=== PATIENT | female | born 2005 | race Caucasian/White ===

== ENCOUNTER 2024-05-07 09:56 | Emergency (ER) | payer BC, OTHER, SELFPAY ==
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
[2024-05-07 10:04] VITALS: BP 122/74; PULSE 70; RESP 16; TEMP 36.6; O2SAT 98; BMI 21.6
[2024-05-07 11:45] VITALS: BP 122/68; PULSE 65; RESP 14; TEMP 37; O2SAT 100
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
[2024-05-07 12:54] VITALS: BP 122/68; PULSE 65; RESP 14; TEMP 37; O2SAT 100
== END 2024-05-07 12:57 | disposition home or self-care (01) ==
PROVIDERS: Emergency Provider Emergency Medicine
DX: S16.1XXA Strain of muscle, fascia and tendon at neck level, initial encounter (principal); V43.52XA Car driver injured in collision with other type car in traffic accident, initial encounter; Y93.89 Activity, other specified; Y92.410 Unspecified street and highway as the place of occurrence of the external cause; Y99.9 Unspecified external cause status; M54.2 Cervicalgia; M54.6 Pain in thoracic spine
CPT/HCPCS: 72040; 99283; 99284

== ENCOUNTER 2024-07-25 22:15 | Emergency (ER) | payer BC, SELFPAY ==
[2024-07-25 22:17] VITALS: BP 134/84; PULSE 108; RESP 16; TEMP 37.4; O2SAT 99; BMI 21.4
--- NOTE | 2024-07-25 22:38 | ED.GENADULT ---
HPI - General Adult General Chief complaint: General Medical Stated complaint: ? strep throat Time Seen by Provider: 07/25/24 22:34 Source: patient Mode of arrival: ambulatory Limitations: no limitations History of Present Illness ED Provider: corazon GARCIA narrative: Patient has been having sore throat for last 4 days along with blister lesions in the lives which she had off and on in the past no fever no chills Related Data Previous Rx's ?Medication ?Instructions ?Recorded cyclobenzaprine 5 mg tablet 5 mg PO TID PRN muscle spasm #10 05/07/24 tabs lidocaine 5 % topical patch 1 patch topical DAILY #15 ea 05/07/24 cefuroxime axetil 500 mg tablet 500 mg PO BID 7 days #14 tabs 07/25/24 valacyclovir 1 gram tablet 1,000 mg PO BID #14 tabs 07/25/24 (Valtrex) Allergies Allergy/AdvReac Type Severity Reaction Status Date / Time No Known Allergies Allergy Verified 07/25/24 22:19 Review of Systems Review of Systems: Yes all other systems are reviewed and are negative [facility] Social History Social History Advance Directives: No Advance Directives Information Provided: No Physical Exam ED Vital Signs: Vital Signs - 24 hr 07/25/24 22:17 Temperature 99.3 F Pulse Rate 108 H Respiratory Rate 16 Blood Pressure 134/84 Pulse Oximetry 99 Oxygen Delivery Method Room Air BMI result Body Mass Index 21.4 Appearance: Alert. Oriented X3. No acute distress. Eyes: No pallor or icterus ENT: Pharynx erythematous. Oral Mucosa moist blister like lesions in the lips Neck: Normal inspection. Neck supple. Upper cervical lymph node present CVS: Normal heart rate and rhythm. Pulses normal. Respiratory: No respiratory distress. Equal air entry bilateral, no wheezing/rales/rhonchi Abdomen: Soft and nontender. Bowel sounds are present, no mass palpable, no CVA tenderness Skin: Skin warm and dry. Normal skin color. Normal skin turgor. Medical Decision Making Lab Data MDM Lab Attestation statement: I reviewed the patient's lab results. Labs: Lab Results 07/25/24 Range/Units 22:26 Influenza Type A (PCR) NEGATIVE (Negative) Influenza Type B (PCR) NEGATIVE (Negative) RSV RNA Qual (PCR) NEGATIVE (Negative) SARS-CoV-2 RNA (RT-PCR) NEGATIVE (Negative) S. pyogenes GrpA DEL Negative (Negative) Discharge Plan Discharge Clinical Impression: Herpes labialis, Pharyngitis Patient Disposition: Home, Self-Care Instructions: Pharyngitis (ED), Oral Herpes Simplex Virus Infections (ED) Additional Instructions: Start taking Valtrex and antibiotic as prescribed and follow up with your PCP if not better Your COVID flu strep tests are negative Prescriptions: New valacyclovir [Valtrex] 1 gram tablet 1,000 mg PO BID Qty: 14 0RF cefuroxime axetil 500 mg tablet 500 mg PO BID 7 Days Qty: 14 0RF No Action cyclobenzaprine 5 mg tablet 5 mg PO TID PRN (Reason: muscle spasm) Qty: 10 0RF lidocaine 5 % adhesive patch,medicated 1 patch topical DAILY Qty: 15 0RF Rx Instructions: leave on most painful area for up to 12 hrs Print Language: Polish
[2024-07-25 22:43] LABS: IDNOW Serial# 6674DD1D; Strep A Nucleic Acid Negative (Negative)
[2024-07-25 23:09] LABS: Influenza A PCR NEGATIVE (Negative); Influenza B PCR NEGATIVE (Negative); Resp Syncy Virus RNA Qual PCR NEGATIVE (Negative); SARS COV2 PCR INHOUSE NEGATIVE (Negative)
[2024-07-25] MEDS: valACYclovir HCL 1,000 MG TABLET 1000 MG PO (23:30)
[2024-07-25] MEDS: cefuroxime axetiL 500 MG TABLET PO (23:30)
[2024-07-25 23:33] VITALS: BP 134/84; PULSE 108; RESP 16; TEMP 37.4; O2SAT 99
== END 2024-07-25 23:33 | disposition home or self-care (01) ==
PROVIDERS: Emergency Provider Internal Medicine
DX: B00.1 Herpesviral vesicular dermatitis (principal); J02.9 Acute pharyngitis, unspecified; Z03.818 Encounter for observation for suspected exposure to other biological agents ruled out
CPT/HCPCS: 0241U; 87651; 99283

== ENCOUNTER 2025-02-26 17:32 | Inpatient (IN) | payer BC, SELFPAY ==
--- NOTE | ~2025-02-26 | CT_ITS ---
CLINICAL HISTORY: LUQ pain radiating to back CT abdomen and pelvis with contrast Comparison: None provided Findings: The lung bases are clear. Hepatomegaly with steatosis Possible tiny gallstones without CT evidence for cholecystitis. Small right-sided hypodense renal cysts. Asymmetric patchy hypoenhancement/nephrograms noted in the left upper pole and right lower pole kidneys concerning for pyelonephritis. 2 mm calculus right upper pole kidney. No significant hydronephrosis. Large colonic stool burden. Anteverted uterus with prominent fluid-filled uterine cavity, may be physiologic. Left ovarian cyst measuring 2.4 cm. This may be further evaluated with ultrasound. Normal appendix. Circumferential bladder wall thickening greater than expected distention. The bones are intact. IMPRESSION: 1. Features concerning for multifocal bilateral pyelonephritis, should be correlated clinically. 2. Nonobstructive 2 mm right upper pole renal calculus. 3. Suspect cystitis. This document has been electronically signed by: Luis Fernando Land MD on 02/26/2025 21:11:10
--- NOTE | ~2025-02-26 | US_ITS ---
CLINICAL HISTORY: abdominal pain, pyelonephritis US abdomen limited Comparison: 02/26/2025 CT Findings: The visualized pancreas is normal. Liver measures 16.6 cm in length and demonstrates normal echotexture. Myelo myelo late 30s 40s medial old the consequence There is no intrahepatic bile duct dilatation. The common duct is 3 mm in diameter. The gallbladder is normal. There is no sonographic Pacheco sign. The main portal vein is antegrade. The right kidney is 11.3 cm in length. Left kidney measures 11.8 cm in length. Unremarkable kidneys without hydronephrosis. No ascites. IMPRESSION: Mild hepatomegaly. Otherwise unremarkable exam. This document has been electronically signed by: Maranda Lara MD on 03/01/2025 11:38:01
--- NOTE | ~2025-02-26 | US_ITS ---
CLINICAL HISTORY: abdominal pain, ovarian cyst US pelvis transabdominal and transvaginal Comparison: 02/26/2026 Findings: Uterus measures mode 8 x 3.1 x 5.1 cm Normal myometrium. Endometrium 7 mm thickness. Right ovary 3.9 x 2 x 2.6 cm. Left ovary 3.7 x 2.2 x 3 cm. Thick wall mostly collapsed slit-like 2 cm left ovarian cyst/likely corpus luteum cyst. Small free fluid likely physiological. IMPRESSION: Thick wall mostly collapsed slit-like 2 cm left ovarian cyst/likely corpus luteum cyst. Small free fluid likely physiological. Of note, spectral Doppler evaluation of the ovaries was not performed. This document has been electronically signed by: Maranda Lara MD on 03/01/2025 11:42:02
[2025-02-26 18:05] VITALS: BP 127/75; PULSE 137; RESP 18; TEMP 39.2; O2SAT 97; BMI 21.9
--- NOTE | 2025-02-26 18:07 | ED.ABDPAIN ---
HPI - Abdominal Pain General Chief Complaint: Abdominal Pain Stated Complaint: rib/abd pain Time Seen by Provider: 02/26/25 18:16 Source: patient Mode of arrival: ambulatory Limitations: no limitations History of Present Illness ED Provider: Charlie Ball PA-C HPI narrative: 19-year-old female with medical history of asthma, presents to the ED due to 4 days of abdominal pain. Patient says she woke up with right-sided rib pain which migrated to the left side 2 days ago, radiates to center of bilateral back. Patient states that these symptoms are associated with vomiting and reports 2 episodes of vomiting this morning, currently not nauseous. Patient states 1 week ago she had urinary symptoms including burning with urination, and increased urinary frequency. She states she took [id number] azo and symptoms resolved. She denies sick contacts, recent travel, chest pain, shortness of breath, hematemesis, black/tarry stool, diarrhea. MD elicited complaint: abdominal pain Onset (ago): day(s) (4) Pain Consistency: constant Location: LUQ Severity: moderate Quality: stabbing Radiation: other (B/L lumbar back) Migration to: LUQ Exacerbating factors: nothing Relieving factors: nothing Associated symptoms: denies other symptoms Related Data Home Medications ?Medication ?Instructions ?Recorded ?Confirmed ibuprofen 200 mg tablet (Advil) 600 mg PO Q6H PRN Pain 02/26/25 02/26/25 Allergies Allergy/AdvReac Type Severity Reaction Status Date / Time No Known Allergies Allergy Verified 02/26/25 18:07 Review of Systems Review of Systems CONST: Negative for fever, body aches and chills. HENT: Negative for neck pain/stiffness, headache, congestion, sore throat, swelling. EYES: Negative for discharge/pain or vision changes. RESP: Negative for cough/hemoptysis and shortness of breath. CV: Negative chest pain, difficulty breathing, palpitations. ABD: POS pain, nausea, vomiting. : Negative increase frequency, dysuria, blood in urine or stool. MUSC: Negative for muscle aches, edema. SKIN: Negative rash, lesions/sores. NEURO: Negative headache, dizziness, weakness. [facility] Past Medical History Attestation statement: The following information was validated with the patient. Source: old records reviewed and nursing notes reviewed Social History Social History Household Members: Family Housing: House Patient Tobacco Use Status: Former Tobacco user service: No Physical Exam ED Vital Signs: Vital Signs - 24 hr 02/26/25 18:05 02/26/25 18:10 02/26/25 20:29 Temperature 102.5 F H 101 F H 98.8 F Pulse Rate 137 H 82 82 Respiratory Rate 18 20 20 Blood Pressure 127/75 99/53 L 99/53 L Pulse Oximetry 97 98 98 Oxygen Delivery Method Room Air Room Air Room Air 02/26/25 20:46 Temperature 98.8 F Pulse Rate Respiratory Rate Blood Pressure Pulse Oximetry Oxygen Delivery Method BMI result Body Mass Index 21.9 GENERAL APPEARANCE: ?AxOx4, generally well-appearing, no acute distress. HEENT: ?NC, AT. MMM. EOMI, clear conjunctiva, oropharynx clear. NECK: ?Supple without lymphadenopathy.? No stiffness or restricted ROM. HEART:? tachycardic rate and regular rhythm, normal S1/S1, no m/r/g LUNGS:? CTAB, moving air well. No crackles or wheezes are heard. ABDOMEN: ?Soft, nondistended with good bowel sounds heard. TTP of LUQ, no rigidity, no distention, no guarding, no rebound tenderness, no overlying skin changes, negative Pacheco's sign. BACK: mild TTP of B/L flanks EXTREMITIES: ?Without cyanosis, clubbing or edema. NEUROLOGICAL: ?Grossly nonfocal. Alert and oriented, moving all 4 extremities. Observed to ambulate with normal gait. Skin: ?Warm and dry without any rash. Course Course Course Narrative: This is an RME: Additional HPI, ROS, PE not included below will be deferred to primary provider. RME assessment and note performed by: Tatiana Allred PA-C This is a 17-layz-agk-female, with no known medical problems, who presents to the ER with complaints of left-sided flank pain which started 4 days ago. She also reports right upper and left upper quadrant pain. Constant, with nausea and vomiting, no diarrhea. Patient with left-sided CVA tenderness. Abdomen is otherwise soft, nontender patient tachycardic at 137bpm temp of 102.5?. Plan: Labs, UA Medical Decision Making Medical Decision Making MDM Narrative: 19-year-old female with medical history of asthma, presents to the ED due to 4 days of abdominal pain. Patient says she woke up with right-sided rib pain which migrated to the left side 2 days ago, radiates to center of bilateral back. Patient states that these symptoms are associated with vomiting and reports 2 episodes of vomiting this morning, currently not nauseous. Patient states 1 week ago she had urinary symptoms including burning with urination, and increased urinary frequency. She states she took [id number]-[id number] azo and symptoms resolved. Vital signs reveal a tachycardia 137 beats per minute, with temperature of 102.5?. Sepsis alert called at 18:42. Physical exam reveals TTP over the LUQ, abdomen soft, no distention, no rigidity, no guarding, no rebound tenderness, negative Pacheco's sign, no overlying skin changes. I did not appreciate CVA tenderness on exam, patient more tender over bilateral lumbar paraspinal muscles to palpation. Course 18:52- IV fluids LR 30mg/kg bolus started, IV tylenol for fever, 4mg zofran for nausea. Ordered CT abdomen and pelvis with IV contrast for evaluation of possible pyelonephritis, acute abdominal pathology. EKG without ST elevation/depression/T-wave abnormality, arrhythmia. 19:01- IV ceftriaxone for prophylactic coverage. Labs reveal hypomagnesemia at 1.4. Ordered 2 g of IV magnesium for repletion. Labs revealed leukocytosis at 25.2, lactic acid WNL. Awaiting UA results. 20:29- BP 99/53, Temp- 98.8. Patient states she feels better after receiving fluids. Viral serology negative. Awaiting CT abdomen and pelvis results. 21:16- CT abdomen and pelvis reveals bilateral pyelonephritis, with a nonobstructive 2 mm right upper pole renal calculi. Due to bilateral pyelonephritis, and white count of 25.2. Hospitalist Dr. Sánchez consulted and agreed for admission. Patient aware and compliant with plan. Differential Diagnosis Differential Diagnoses: The differential diagnosis associated with the presentation includes Pyelonephritis Obstructing renal calculi UTI Admission/Observation Consideration of admission/observation: Escalation of care including admission/observation considered Consult Healthcare Provider Management of the patient was discussed with: Hospitalist (Dr. Sánchez consulted for admission) Lab Data MDM Lab Attestation statement: I reviewed the patient's lab results. 02/27/25 04:01 02/27/25 04:01 Labs: Lab Results 02/26/25 Range/Units 18:45 WBC 25.2 H (4.8-10.8) X10*3/uL RBC 4.05 L (4.20-5.50) X10*6/uL Hgb 12.1 (12.0-16.0) g/dl Hct 35.1 L (37.0-47.0) % MCV 86.7 (80.0-98.0) fL MCH 29.9 (27.0-33.0) pg MCHC 34.5 (31.0-35.0) g/dl RDW 12.1 (11.0-16.0) % Plt Count 361 (160-400) X10*3/uL MPV 8.8 L (9.4-12.3) fL Immature Gran % (Auto) 1.3 H (0.0-0.4) % Neut % (Auto) 84.5 H (45-73) % Lymph % (Auto) 6.6 L (20-40) % [place] % (Auto) 7.4 (2-11) % Eos % (Auto) 0.0 (0-4) % Baso % (Auto) 0.2 (0-2) % Lymph # (Auto) 1.7 (1.2-4.9) X10*3/uL [place] # (Auto) 1.9 H (0.1-1.2) X10*3/uL Eos # (Auto) 0.0 (0.0-0.4) X10*3/uL Baso # (Auto) 0.1 (0.0-0.2) X10*3/uL Abs Immat Gran (auto) 0.33 H (0.00-0.03) X10*3/uL Absolute Neuts (auto) 21.3 H (2.0-8.3) x10*3/uL Absolute Nucleated RBC 0.000 (0.0-0.012) X10*3/uL Nucleated RBC % (auto) 0.0 (0.0-0.2) /100WBC Smear Tech's Comments VERIFIED Sodium 134 L (135-145) mmol/L Potassium 3.4 (3.3-5.1) mmol/L Chloride 103 (96-108) mmol/L Carbon Dioxide 22 (22-29) mmol/L Anion Gap 12 (12-20) BUN 9 (9-16) mg/dL Creatinine 0.90 (0.5-1.4) mg/dL Estim Creat Clear Calc 78.8 Estimated GFR > 60 Random Glucose 98 (60-115) mg/dL Lactic Acid 0.8 (0.5-2.0) mmol/L Calcium 9.4 (8.4-10.2) mg/dL Magnesium 1.4 L* (1.6-2.6) mg/dL Total Bilirubin 0.7 (0.0-1.0) mg/dL Direct Bilirubin 0.4 (0.0-0.5) mg/dL AST 26 (5-31) U/L ALT 9 (0-31) U/L Alkaline Phosphatase 77 (39-117) U/L Total Protein 7.7 (6.5-8.0) g/dL Albumin 4.5 (3.5-5.0) g/dL Lipase 17 (8-78) U/L Beta HCG, Quant < 2 mIU/mL Influenza Type A (PCR) NEGATIVE (Negative) Influenza Type B (PCR) NEGATIVE (Negative) RSV RNA Qual (PCR) NEGATIVE (Negative) SARS-CoV-2 RNA (RT-PCR) NEGATIVE (Negative) Independent Interpretation I performed an independent interpretation of an: EKG Interpretation: I independently interpreted the EKG Vent. Rate : 107 BPM Atrial Rate : 107 BPM P-R Int : 146 ms QRS Dur : 66 ms QT Int : 290 ms P-R-T Axes : 61 37 6 degrees QTcB Int : 387 ms Sinus tachycardia Left atrial enlargement Nonspecific ST and T wave abnormality Abnormal ECG Radiology Impression Radiologist Impression: Findings: The lung bases are clear. Hepatomegaly with steatosis Possible tiny gallstones without CT evidence for cholecystitis. Small right-sided hypodense renal cysts. Asymmetric patchy hypoenhancement/nephrograms noted in the left upper pole and right lower pole kidneys concerning for pyelonephritis. 2 mm calculus right upper pole kidney. No significant hydronephrosis. Large colonic stool burden. Anteverted uterus with prominent fluid-filled uterine cavity, may be physiologic. Left ovarian cyst measuring 2.4 cm. This may be further evaluated with ultrasound. Normal appendix. Circumferential bladder wall thickening greater than expected distention. The bones are intact. IMPRESSION: 1. Features concerning for multifocal bilateral pyelonephritis, should be correlated clinically. 2. Nonobstructive 2 mm right upper pole renal calculus. 3. Suspect cystitis. This document has been electronically signed by: Luis Fernando Land MD on 02/26/2025 21:11:10 Dictated By: Luis Fernando Land MD Signed By: <Electronically signed by Luis Fernando Land MD in OV> 02/26/252111 External Record Review External record reviewed: Inpatient record, Office record and Outpatient record Medications Administered Generic Name Dose Route Start Last Admin Trade Name Freq PRN Reason Stop Dose Admin Acetaminophen 650 mg 02/26/25 22:06 02/27/25 08:05 Acetaminophen 325 Mg Tablet PO 650 mg Q6H PRN Administration Pain, Mild 1-3,fever,headache Ceftriaxone Sodium 2 gm 02/27/25 21:00 02/27/25 20:50 Ceftriaxone Sodium 2 Gm Vial IVPUSH 2 gm Q24H MONA Administration Docusate Sodium 100 mg 02/27/25 21:00 02/27/25 20:49 Docusate Sodium 100 Mg Capsule PO 100 mg BEDTIME MONA Administration Magnesium Hydroxide 30 ml 02/26/25 22:06 02/27/25 14:40 Milk Of Magnesia 30 Ml Oral.Susp PO 30 ml DAILY PRN Administration Constipation Oxycodone HCl 5 mg 02/27/25 12:15 02/27/25 12:30 Oxycodone Hcl Immed Release 5 Mg Tablet PO 5 mg Q6H PRN Administration Pain, Moderate(Pain Scale 4-6) Sodium Chloride 3 ml 02/27/25 00:00 02/27/25 20:53 0.9 % Sodium Chloride Flush 3 Ml Syringe IVFLUSH 3 ml QSHIFT MONA Administration Discontinued Medications Generic Name Dose Route Start Last Admin Trade Name Freq PRN Reason Stop Dose Admin Ceftriaxone Sodium 2 gm 02/26/25 18:52 02/26/25 19:01 Ceftriaxone Sodium 2 Gm Vial IVPUSH 02/26/25 18:53 2 gm ONCE ONE Administration Acetaminophen 1,000 mg in 100 mls @ 400 mls/hr 02/26/25 18:19 02/26/25 22:35 Ofirmev IV 02/26/25 18:33 Infused ONCE ONE Infusion Lactated Ringer's 1,632.93 mls @ 1,632.93 mls/hr 02/26/25 18:21 02/27/25 00:04 Lr 30 ml/kg infuse over 1 hr (1632.93 ml) 02/26/25 19:20 Infused IV Infusion .Q1H ONE Magnesium Sulfate 2 gm in 50 mls @ 150 mls/hr 02/26/25 19:49 02/27/25 00:04 Magnesium Sulfate/H2o IV 02/26/25 20:08 Infused ONCE ONE Infusion Iohexol 100 ml 02/26/25 20:12 02/26/25 20:12 Iohexol 350 Mg/Ml 100 Ml Infus..Btl IV 02/26/25 20:13 85 ml ONCE ONE Administration Ketorolac Tromethamine 30 mg 02/27/25 05:48 02/27/25 06:11 Ketorolac Tromethamine 30 Mg/Ml Vial IVPUSH 02/27/25 05:49 30 mg ONCE ONE Administration Ketorolac Tromethamine 15 mg 02/27/25 16:44 02/27/25 16:52 Ketorolac Tromethamine 15 Mg/Ml Vial IVPUSH 02/27/25 16:45 15 mg ONCE ONE Administration Ondansetron HCl 4 mg 02/26/25 19:11 02/26/25 19:15 Ondansetron Hcl 4 Mg/2 Ml Vial IVPUSH 02/26/25 19:12 4 mg ONCE ONE Administration Critical Care Time Critical Care Time Critical Care Time: Yes Total Critical Care Time: 63 Attestation: I have personally provided 63minutes of critical care time exclusive of time spent on separately billable procedures. Time includes review of lab data, radiology results, discussion with consultants, and monitoring for potential decompensation. Intervention performed as documented. Discharge Plan Discharge Clinical Impression: Pyelonephritis Patient Disposition: Admitted As Inpatient Interventions: Admission Worksheet (ED) Last Done: 02/27/25 04:54 Discharge Date/Time: 02/27/25 10:16
[2025-02-26 18:10] VITALS: BP 99/53; PULSE 82; RESP 20; TEMP 38.3; O2SAT 98
--- NOTE | 2025-02-26 18:10 | ECG_ITS ---
Test Reason : SEPSIS ALERT Blood Pressure : */* mmHG Vent. Rate : 107 BPM Atrial Rate : 107 BPM P-R Int : 146 ms QRS Dur : 66 ms QT Int : 290 ms P-R-T Axes : 61 37 6 degrees QTcB Int : 387 ms Sinus tachycardia Left atrial enlargement Nonspecific ST and T wave abnormality Abnormal ECG No previous ECGs available Referred By: Tatiana Allred Electronically Signed By: MELANIE MILLER
[2025-02-26] MEDS: cefTRIAXone sodium 2 GM VIAL IVPUSH (19:01)
[2025-02-26 19:12] LABS: Lactic Acid 0.8 mmol/L (0.5-2.0)
[2025-02-26] MEDS: ondansetron HCL 4 MG/2 ML VIAL IVPUSH (19:15)
[2025-02-26 19:16] LABS: Alanine Aminotransferase 9 U/L (0-31); Albumin Level 4.5 g/dL (3.5-5.0); Alkaline Phosphatase 77 U/L (39-117); Anion Gap 12 (12-20); Aspartate Amino Transferase 26 U/L (5-31); Bilirubin Direct 0.4 mg/dL (0.0-0.5); Bilirubin Total 0.7 mg/dL (0.0-1.0); Blood Urea Nitrogen 9 mg/dL (9-16); Calcium 9.4 mg/dL (8.4-10.2); Carbon Dioxide 22 mmol/L (22-29); Chloride 103 mmol/L (96-108); Creatinine Clr Calc Pharmacy 78.8; Estimated Glomerular Filt Rate > 60; Glucose Random 98 mg/dL (60-115); Lipase 17 U/L (8-78); Magnesium 1.4 mg/dL (1.6-2.6); Potassium 3.4 mmol/L (3.3-5.1); Sodium 134 mmol/L (135-145); Total Protein 7.7 g/dL (6.5-8.0)
[2025-02-26] MEDS: Acetaminophen 1,000 MG/100 ML PIGGYBACK 400 MG IV (19:17)
[2025-02-26 19:21] LABS: Basophils Absolute Auto 0.1 X10*3/uL (0.0-0.2); Basophils Percent Auto 0.2 % (0-2); HCG Quantitative < 2 mIU/mL; Hematocrit 35.1 % (37.0-47.0); Hemoglobin 12.1 g/dl (12.0-16.0); Imm Gran Abs Auto 0.33 X10*3/uL (0.00-0.03); Imm Gran Pct Auto 1.3 % (0.0-0.4); Lymphocytes Absolute Auto 1.7 X10*3/uL (1.2-4.9); Lymphocytes Percent Auto 6.6 % (20-40); Mean Corpuscular HGB Conc 34.5 g/dl (31.0-35.0); Mean Corpuscular Hemoglobin 29.9 pg (27.0-33.0); Mean Corpuscular Volume 86.7 fL (80.0-98.0); Mean Platelet Volume 8.8 fL (9.4-12.3); Monocytes Absolute Auto 1.9 X10*3/uL (0.1-1.2); Monocytes Percent Auto 7.4 % (2-11); Neutrophils Absolute Auto 21.3 x10*3/uL (2.0-8.3); Neutrophils Percent Auto 84.5 % (45-73); Platelet Count 361 X10*3/uL (160-400); Red Blood Count 4.05 X10*6/uL (4.20-5.50); Red Cell Distribution Width 12.1 % (11.0-16.0); SCAN SMEAR FLAG 1; White Blood Count 25.2 X10*3/uL (4.8-10.8)
[2025-02-26 19:33] LABS: Influenza A PCR NEGATIVE (Negative); Influenza B PCR NEGATIVE (Negative); Resp Syncy Virus RNA Qual PCR NEGATIVE (Negative); SARS COV2 PCR INHOUSE NEGATIVE (Negative)
[2025-02-26 20:01] LABS: MANUAL DIFF FLAG SCAN; SLIDE REVIEW VERIFIED
[2025-02-26] MEDS: iohexoL 350 MG/ML 100 ML INFUS..BTL IV (20:12)
[2025-02-26 20:29] VITALS: BP 99/53; PULSE 82; RESP 20; TEMP 37.1; O2SAT 98
[2025-02-26 20:46] VITALS: TEMP 37.1
[2025-02-26 21:32] VITALS: BP 107/58; PULSE 80; O2SAT 97
[2025-02-26] MEDS: Magnesium Sulfate/H2O 2 GM/50 ML PIGGYBACK IV (21:32)
[2025-02-26 21:53] VITALS: BP 105/47; PULSE 80; O2SAT 95
--- NOTE | 2025-02-26 22:06 | PM.IMHP ---
History of Present Illness Date of Service: 02/26/25 Chief Complaint: flank pain This is a 19-year-old female with pertinent history of mild intermittent asthma not on home oxygen who presents to the emergency department for evaluation of flank pain. Patient states her symptoms started 3 days prior to presentation. She started having right-sided flank pain 3 days prior to presentation and it has subsequently progressed to left-sided flank pain 2 days prior to presentation. The pain is intermittent and not relieved with Tylenol. Also has been having chills, no documented fever. Patient had nausea and 2 episodes of nonbloody emesis on the day of presentation. This has never happened before. Patient had dysuria and increased urinary frequency 1 week ago and took [id number] azo for it and her symptoms resolved. Currently denies any urinary symptoms. No chest pain, palpitations, shortness of breath, changes in bowel habits. In the emergency department, patient was found to be septic with leukocytosis 25.2. Imaging with bilateral pyelonephritis. Review of Systems Constitutional: Constitutional: Reports chills and Reports fever(s) Cardiovascular: Cardiovascular: Reports no additional cardiovascular complaints Respiratory: Respiratory: Reports no additional respiratory complaints Genitourinary: Genitourinary: Reports flank pain and Reports urinary urgency PMFSH Pertinent family history: No family history of early CAD Social History Smoked in Last 30 Days: No Advance Directives: No Advance Directives Information Provided: No Do you have a plan to hurt others: No Plan Patient : No Meds Allergies Allergy/AdvReac Type Severity Reaction Status Date / Time No Known Allergies Allergy Verified 02/26/25 18:07 Physical Exam Vital Signs and Narrative: Vital Signs: Last Vital Signs Temp 98.8 F 02/26/25 20:46 Pulse 82 02/26/25 20:29 Resp 20 02/26/25 20:29 BP 99/53 L 02/26/25 20:29 Pulse Ox 98 02/26/25 20:29 O2 Del Method Room Air 02/26/25 20:29 BMI result Body Mass Index 21.9 Young female lying in bed in no distress Neck supple, no JVD Regular rate and rhythm, S1-S2 heard Regular breath sounds bilaterally, no wheezing or crackles appreciated Abdomen with bilateral CVA tenderness, no guarding, no rigidity Patient is awake, alert and oriented to self, place, time and person ; no focal motor deficit Psych: Normal mood No pedal edema Results Labs 02/26/25 18:45 02/26/25 18:45 Labs: Laboratory Results - last 24 hr 02/26/25 18:45 MCV 86.7 MCH 29.9 MCHC 34.5 RDW 12.1 Plt Count 361 MPV 8.8 L Immature Gran % (Auto) 1.3 H Neut % (Auto) 84.5 H Lymph % (Auto) 6.6 L [place] % (Auto) 7.4 Eos % (Auto) 0.0 Baso % (Auto) 0.2 Lymph # (Auto) 1.7 [place] # (Auto) 1.9 H Eos # (Auto) 0.0 Baso # (Auto) 0.1 Abs Immat Gran (auto) 0.33 H Absolute Neuts (auto) 21.3 H Absolute Nucleated RBC 0.000 Nucleated RBC % (auto) 0.0 Smear Tech's Comments VERIFIED Anion Gap 12 Estim Creat Clear Calc 78.8 Estimated GFR > 60 Random Glucose 98 Lactic Acid 0.8 Calcium 9.4 Magnesium 1.4 L* Total Bilirubin 0.7 Direct Bilirubin 0.4 AST 26 ALT 9 Alkaline Phosphatase 77 Total Protein 7.7 Albumin 4.5 Lipase 17 Beta HCG, Quant < 2 Influenza Type A (PCR) NEGATIVE Influenza Type B (PCR) NEGATIVE RSV RNA Qual (PCR) NEGATIVE SARS-CoV-2 RNA (RT-PCR) NEGATIVE Assessment and Plan (1) Pyelonephritis: Status: Acute (2) Sepsis: Status: Acute Plan This is a 19-year-old female with pertinent history of mild intermittent asthma not on home oxygen who presents to the emergency department for evaluation of flank pain. #. Sepsis due to acute bilateral pyelonephritis: Will admit patient with IV ceftriaxone. Resuscitated with IV crystalloids. Lactic acid and blood culture obtained. UA and urine culture pending #. Hypomagnesemia: Repleted DVT prophylaxis: None. Low risk. Patient is ambulatory. Full code Admit as inpatient and will require two night minimum hospital stay for IV antibiotics (as above), which is not possible in a lesser acute setting. Quality Stroke Does the patient have a stroke diagnosis?: No VTE Prior VTE?: No VTE Risk Level:: Medical - low VTE Device Contraindication: Treatment Not Indicated VTE Drug Contraindication: Treatment Not Indicated
--- NOTE | 2025-02-26 22:48 | PHA.MEDREC ---
Pharmacy Consult ? Medication Reconciliation Pharmacy has completed the medication reconciliation.
[2025-02-27 00:22] VITALS: BP 109/56; PULSE 77; RESP 16; TEMP 36.7; O2SAT 96
[2025-02-27 00:33] LABS: Appearance Urine Clear; Color Urine Yellow; Glucose Urine UA Negative (Negative); Leukocyte Esterase Urine Moderate (2+) (Negative); Nitrite Urine Negative (Negative); PH 6.5 (5.0-9.0); Specific Gravity - Urine >= 1.030 (1.005-1.025); UMIC TRIGGER UACC YES; Urine Blood Trace (Negative); Urine Ketones Trace mg/dL (Negative); Urine Protein Negative (Neg-Trace)
[2025-02-27] MEDS: Acetaminophen 325 MG TABLET 650 MG PO ×2 (00:33→08:05)
[2025-02-27 01:04] LABS: Bacteria Urine None Seen (None Seen); RBC Urine 0-2 /HPF (0-2); Squamous Epithelial Cell Urine 0-2 /HPF (0-2); UACC Culture Trigger YES; WBC Urine >50 /HPF (0-5)
--- NOTE | 2025-02-27 01:08 | PC.NURSE ---
assumed care for this pt at 2300. pt in stretcher resting quietly in no notable distress. significant other is bedside. no IV fluids running at this time. pt not complaining of any pain. 0004 IVF ended in NOV, fluids not running at this time.
[2025-02-27 04:05] LABS: MANUAL DIFF FLAG NO
[2025-02-27 04:09] LABS: Basophils Percent Auto 0.2 % (0-2); Eosinophils Percent Auto 0.1 % (0-4); Hematocrit 32.1 % (37.0-47.0); Hemoglobin 11.3 g/dl (12.0-16.0); Imm Gran Abs Auto 0.11 X10*3/uL (0.00-0.03); Imm Gran Pct Auto 0.6 % (0.0-0.4); Lymphocytes Absolute Auto 1.9 X10*3/uL (1.2-4.9); Lymphocytes Percent Auto 9.7 % (20-40); Mean Corpuscular HGB Conc 35.2 g/dl (31.0-35.0); Mean Corpuscular Hemoglobin 30.4 pg (27.0-33.0); Mean Corpuscular Volume 86.3 fL (80.0-98.0); Mean Platelet Volume 8.6 fL (9.4-12.3); Monocytes Absolute Auto 1.9 X10*3/uL (0.1-1.2); Monocytes Percent Auto 9.9 % (2-11); Neutrophils Absolute Auto 15.2 x10*3/uL (2.0-8.3); Neutrophils Percent Auto 79.5 % (45-73); Platelet Count 325 X10*3/uL (160-400); Red Blood Count 3.72 X10*6/uL (4.20-5.50); Red Cell Distribution Width 12.2 % (11.0-16.0); SCAN SMEAR FLAG 1; White Blood Count 19.1 X10*3/uL (4.8-10.8)
[2025-02-27 04:33] LABS: Anion Gap 12 (12-20); Blood Urea Nitrogen 7 mg/dL (9-16); Calcium 8.5 mg/dL (8.4-10.2); Carbon Dioxide 23 mmol/L (22-29); Chloride 106 mmol/L (96-108); Creatinine Clr Calc Pharmacy 85.5; Estimated Glomerular Filt Rate > 60; Glucose Random 110 mg/dL (60-115); Potassium 3.6 mmol/L (3.3-5.1); Sodium 137 mmol/L (135-145)
[2025-02-27 05:59] VITALS: BP 111/46; PULSE 97; RESP 18; TEMP 37.6; O2SAT 100
[2025-02-27] MEDS: Ketorolac Tromethamine 30 MG/ML VIAL IVPUSH (06:11)
[2025-02-27] MEDS: 0.9 % Sodium Chloride Flush 3 ML SYRINGE IVFLUSH ×3 (08:06→20:53)
--- NOTE | 2025-02-27 08:13 | PC.NURSE ---
Care of Pt assumed at change of shift. Pt resting quietly watching TV Pt reports she is did not eat much of her breakfast as she does not have an appetite. Tylenol given for not low grade fever. Pt awaiting transport to inpatient room.
[2025-02-27 10:25] VITALS: BP 109/55; PULSE 85; RESP 16; TEMP 36.4; O2SAT 100
[2025-02-27 10:54] VITALS: TEMP 36.4
[2025-02-27] MEDS: oxyCODONE HCl Immed Release 5 MG TABLET PO ×2 (12:30→23:51)
[2025-02-27] MEDS: Milk of Magnesia 30 ML ORAL.SUSP PO (14:40)
--- NOTE | 2025-02-27 14:53 | HO.PM.IMPN ---
Subjective Subjective Date of Service: 02/27/25 Interval History: seen and examined this morning follow up for pyelonephritis reporting chills and back pain Review of Systems Review of Systems: Yes all other systems are reviewed and are negative Constitutional Constitutional: Reports chills Cardiovascular Cardiovascular: Denies chest pain and Denies dyspnea Respiratory Respiratory: Denies dyspnea Gastrointestinal Gastrointestinal: Reports abdominal pain Physical Exam Vital Signs: Vital Signs: Last Vital Signs Temp 97.5 F 02/27/25 10:54 Pulse 85 02/27/25 10:25 Resp 16 02/27/25 10:25 BP 109/55 L 02/27/25 10:25 Pulse Ox 100 02/27/25 10:25 O2 Del Method Room Air 02/27/25 10:25 BMI result Body Mass Index 21.9 Const: General: cooperative, comfortable, alert and awake Nutritional Appearance: average body habitus Orientation/consciousness: patient oriented x3 Resp: Effort & Inspection: normal respiratory effort, able to speak in complete sentences, no respiratory distress and no use of accessory muscles Cardio: Rate: regular rate GI: Inspection: No distended Palpation (GI): Soft to palpation : General: Yes CVA tenderness bilateral Back/Spine/Pelvis: Back: CVA tenderness Neuro: General: patient oriented x3, moves all extremities and CN's II-XI intact bilaterally Objective Data Active Medications Acetaminophen (Acetaminophen 325 Mg Tablet) 650 mg PO Q6H PRN PRN Reason: Pain, Mild 1-3,fever,headache Last Admin: 02/27/25 08:05 Dose: 650 mg Documented By: PAULA Calcium Carbonate (Calcium Carbonate 750 Mg Tab.Chew) 750 mg PO Q4H PRN PRN Reason: Heartburn Ceftriaxone Sodium (Ceftriaxone Sodium 2 Gm Vial) 2 gm IVPUSH Q24H MONA Magnesium Hydroxide (Milk Of Magnesia 30 Ml Oral.Susp) 30 ml PO DAILY PRN PRN Reason: Constipation Last Admin: 02/27/25 14:40 Dose: 30 ml Documented By: MARKELL Melatonin (Melatonin 3 Mg Tablet) 6 mg PO BEDTIME PRN PRN Reason: Insomnia Morphine Sulfate (Morphine Sulfate 2 Mg/Ml Cartridge) 2 mg IVPUSH Q4H PRN; Protocol PRN Reason: Pain, Severe (Pain Scale 7-10) Ondansetron HCl (Ondansetron Hcl 4 Mg/2 Ml Vial) 4 mg IVPUSH Q8H PRN PRN Reason: Nausea and Vomiting Oxycodone HCl (Oxycodone Hcl Immed Release 5 Mg Tablet) 5 mg PO Q6H PRN PRN Reason: Pain, Moderate(Pain Scale 4-6) Last Admin: 02/27/25 12:30 Dose: 5 mg Documented By: MARKELL Sodium Chloride (0.9 % Sodium Chloride Flush 3 Ml Syringe) 3 ml IVFLUSH QSHIFT [facility] Last Admin: 02/27/25 08:06 Dose: 3 ml Documented By: PAULA Labs 02/27/25 04:01 02/27/25 04:01 Labs: Laboratory Results - last 24 hr 02/26/25 02/27/25 02/27/25 18:45 00:24 04:01 MCV 86.7 86.3 MCH 29.9 30.4 MCHC 34.5 35.2 H RDW 12.1 12.2 Plt Count 361 325 MPV 8.8 L 8.6 L Immature Gran % (Auto) 1.3 H 0.6 H Neut % (Auto) 84.5 H 79.5 H Lymph % (Auto) 6.6 L 9.7 L [place] % (Auto) 7.4 9.9 Eos % (Auto) 0.0 0.1 Baso % (Auto) 0.2 0.2 Lymph # (Auto) 1.7 1.9 [place] # (Auto) 1.9 H 1.9 H Eos # (Auto) 0.0 0.0 Baso # (Auto) 0.1 0.0 Abs Immat Gran (auto) 0.33 H 0.11 H Absolute Neuts (auto) 21.3 H 15.2 H Absolute Nucleated RBC 0.000 0.000 Nucleated RBC % (auto) 0.0 0.0 Smear Tech's Comments VERIFIED Anion Gap 12 12 Estim Creat Clear Calc 78.8 85.5 Estimated GFR > 60 > 60 Random Glucose 98 110 Lactic Acid 0.8 Calcium 9.4 8.5 D Magnesium 1.4 L* 2.0 Total Bilirubin 0.7 Direct Bilirubin 0.4 AST 26 ALT 9 Alkaline Phosphatase 77 Total Protein 7.7 Albumin 4.5 Lipase 17 Beta HCG, Quant < 2 Urine Color Yellow Urine Appearance Clear Urine pH 6.5 Ur Specific [place] >= 1.030 H Urine Protein Negative Urine Glucose (UA) Negative Urine Ketones Trace Urine Blood Trace H Urine Nitrite Negative Ur Leukocyte Esterase Moderate (2+) H Urine RBC 0-2 Urine WBC >50 H Ur Squamous Epith Cells 0-2 Urine Bacteria None Seen Hyaline Casts 3-5 Influenza Type A (PCR) NEGATIVE Influenza Type B (PCR) NEGATIVE RSV RNA Qual (PCR) NEGATIVE SARS-CoV-2 RNA (RT-PCR) NEGATIVE Assessment and Plan (1) Pyelonephritis: Status: Acute Plan This is a 19-year-old female with pertinent history of mild intermittent asthma who presents to the emergency department for evaluation of flank pain. Sepsis due to acute bilateral pyelonephritis: s/p 30cc/kg bolus. Lactic normal continue IV ceftriaxone Urine culture, blood cultures pending pain control Hypomagnesemia: Repleted constipation ct with large colonic stool burden bowel regimen DVT prophylaxis: None. Low risk. Patient is ambulatory. Full code Requires ongoing inpatient stay for IV antibiotics (as above), which is not possible in a lesser acute setting. Quality Stroke Does the patient have a stroke diagnosis?: No VTE Prior VTE?: No VTE Risk Level:: Medical - low VTE Device Contraindication: Treatment Not Indicated VTE Drug Contraindication: Treatment Not Indicated
[2025-02-27 15:27] VITALS: BP 103/51; PULSE 104; RESP 18; TEMP 36.9; O2SAT 99
--- NOTE | 2025-02-27 16:24 | MHC.CM.PN ---
PT REPORTS SHE LIVES WITH HER FAMILY AND IS INDEPENDENT WITH CARE SHE HAS NO SERVICES AND NO DME SHE DECLINES INFORMATION ON A HCP SHE SAYS SHE IS ALREADY WORKING ON A NEW PCP DCP: HOME VIA FAMILY TRANSPORT
[2025-02-27] MEDS: Ketorolac Tromethamine 15 MG/ML VIAL IVPUSH (16:52)
[2025-02-27] MEDS: Docusate Sodium 100 MG CAPSULE PO (20:49)
[2025-02-27] MEDS: cefTRIAXone sodium 2 GM VIAL IVPUSH (20:50)
--- NOTE | 2025-02-27 21:07 | PC.NURSE ---
Late entry, sepsis bolus LR 30cc/kg infused on 02/26/25 @ 2110.
[2025-02-27 23:39] VITALS: BP 100/52; PULSE 109; RESP 16; TEMP 36.4; O2SAT 98
[2025-02-28 06:15] LABS: Hematocrit 30.4 % (37.0-47.0); Hemoglobin 10.2 g/dl (12.0-16.0); Mean Corpuscular HGB Conc 33.6 g/dl (31.0-35.0); Mean Corpuscular Hemoglobin 29.7 pg (27.0-33.0); Mean Corpuscular Volume 88.4 fL (80.0-98.0); Mean Platelet Volume 8.5 fL (9.4-12.3); Platelet Count 317 X10*3/uL (160-400); Red Blood Count 3.44 X10*6/uL (4.20-5.50); Red Cell Distribution Width 12.1 % (11.0-16.0); White Blood Count 18.7 X10*3/uL (4.8-10.8)
[2025-02-28 07:40] VITALS: BP 90/55; PULSE 80; RESP 14; TEMP 37.1; O2SAT 97
[2025-02-28] MEDS: polyethylene glycoL 3350 17 GM POWD.PACK PO (09:48)
[2025-02-28] MEDS: 0.9 % Sodium Chloride Flush 3 ML SYRINGE IVFLUSH ×2 (09:48→20:45)
[2025-02-28] MEDS: oxyCODONE HCl Immed Release 5 MG TABLET PO ×2 (09:54→16:59)
[2025-02-28] MEDS: Lactated Ringers 1,000 ML 125 ML IVCONT ×2 (11:54→18:32)
--- NOTE | 2025-02-28 12:49 | P.PNIM_ITS ---
Subjective Subjective Date of Service: 02/28/25 Interval History: Seen and examined this morning Follow-up for pyelonephritis No dysuria, fever Review of Systems Review of Systems: Yes all other systems are reviewed and are negative Constitutional Constitutional: Denies chills and Denies fever(s) Physical Exam 2 Vital Signs: Vital Signs: Last Vital Signs Temp 98.7 F 02/28/25 07:40 Pulse 80 02/28/25 07:40 Resp 14 02/28/25 07:40 BP 90/55 L 02/28/25 07:40 Pulse Ox 97 02/28/25 07:40 O2 Del Method Room Air 02/28/25 07:40 BMI result Body Mass Index 21.9 Const: General: cooperative, comfortable, alert and awake Nutritional Appearance: average body habitus Orientation/consciousness: patient oriented x3 Resp: Effort & Inspection: normal respiratory effort, able to speak in complete sentences, no respiratory distress and no use of accessory muscles Cardio: Rate: regular rate GI: Inspection: No distended Palpation (GI): Soft to palpation : General: Yes CVA tenderness bilateral Back/Spine/Pelvis: Back: CVA tenderness Neuro: General: patient oriented x3, moves all extremities and CN's II-XI intact bilaterally Objective Data Active Medications Acetaminophen (Acetaminophen 325 Mg Tablet) 650 mg PO Q6H PRN PRN Reason: Pain, Mild 1-3,fever,headache Last Admin: 02/27/25 08:05 Dose: 650 mg Documented By: PAULA Calcium Carbonate (Calcium Carbonate 750 Mg Tab.Chew) 750 mg PO Q4H PRN PRN Reason: Heartburn Ceftriaxone Sodium (Ceftriaxone Sodium 1 Gm Vial) 1 gm IVPUSH Q24H MONA Docusate Sodium (Docusate Sodium 100 Mg Capsule) 100 mg PO BEDTIME MONA Last Admin: 02/27/25 20:49 Dose: 100 mg Documented By: ANDREW Lactated Ringer's (Lr) 1,000 mls @ 125 mls/hr IVCONT .Q8H MONA Last Admin: 02/28/25 11:54 Dose: 125 mls/hr Documented By: YARA Magnesium Hydroxide (Milk Of Magnesia 30 Ml Oral.Susp) 30 ml PO DAILY PRN PRN Reason: Constipation Last Admin: 02/27/25 14:40 Dose: 30 ml Documented By: MARKELL Melatonin (Melatonin 3 Mg Tablet) 6 mg PO BEDTIME PRN PRN Reason: Insomnia Morphine Sulfate (Morphine Sulfate 2 Mg/Ml Cartridge) 2 mg IVPUSH Q4H PRN; Protocol PRN Reason: Pain, Severe (Pain Scale 7-10) Ondansetron HCl (Ondansetron Hcl 4 Mg/2 Ml Vial) 4 mg IVPUSH Q8H PRN PRN Reason: Nausea and Vomiting Oxycodone HCl (Oxycodone Hcl Immed Release 5 Mg Tablet) 5 mg PO Q6H PRN PRN Reason: Pain, Moderate(Pain Scale 4-6) Last Admin: 02/28/25 09:54 Dose: 5 mg Documented By: YARA Polyethylene Glycol (Polyethylene Glycol 3350 17 Gm Powd.Pack) 17 gm PO DAILY [facility] Last Admin: 02/28/25 09:48 Dose: 17 gm Documented By: YARA Sodium Chloride (0.9 % Sodium Chloride Flush 3 Ml Syringe) 3 ml IVFLUSH QSHIFT [facility] Last Admin: 02/28/25 09:48 Dose: 3 ml Documented By: YARA Labs 02/28/25 06:05 02/27/25 04:01 Labs: Laboratory Results - last 24 hr 02/28/25 06:05 MCV 88.4 MCH 29.7 MCHC 33.6 RDW 12.1 Plt Count 317 MPV 8.5 L Absolute Nucleated RBC 0.000 Nucleated RBC % (auto) 0.0 Microbiology Microbiology Results: Microbiology 02/26/25 18:45 Blood Culture - Preliminary Blood - Venous No growth after 24 hours. 02/26/25 18:45 Blood Culture - Preliminary Blood - Venous No growth after 24 hours. Assessment and Plan (1) Pyelonephritis: Status: Acute Plan This is a 19-year-old female with pertinent history of mild intermittent asthma who presents to the emergency department for evaluation of flank pain. Sepsis due to acute bilateral pyelonephritis: s/p 30cc/kg bolus. Lactic normal continue IV ceftriaxone Blood cultures negative to date Urine culture pending pain control, IVF Hypomagnesemia: Resolved with replacement constipation ct with large colonic stool burden bowel regimen DVT prophylaxis: None. Low risk. Patient is ambulatory. Full code Requires ongoing inpatient stay for IV antibiotics (as above), which is not possible in a lesser acute setting. Quality Stroke Does the patient have a stroke diagnosis?: No VTE Prior VTE?: No VTE Risk Level:: Medical - low VTE Device Contraindication: Treatment Not Indicated VTE Drug Contraindication: Treatment Not Indicated
[2025-02-28 15:01] VITALS: BP 92/52
[2025-02-28 15:27] VITALS: PULSE 76; RESP 18; TEMP 36.4; O2SAT 99
[2025-02-28] MEDS: cefTRIAXone sodium 1 GM VIAL IVPUSH (20:44)
[2025-02-28] MEDS: Docusate Sodium 100 MG CAPSULE PO (20:44)
[2025-02-28 22:56] VITALS: BP 107/57; PULSE 78; RESP 18; TEMP 36.6; O2SAT 100
[2025-03-01] MEDS: oxyCODONE HCl Immed Release 5 MG TABLET PO ×2 (01:53→10:25)
[2025-03-01] MEDS: Lactated Ringers 1,000 ML 125 ML IVCONT (01:54)
[2025-03-01 07:34] VITALS: BP 109/52; PULSE 67; RESP 16; TEMP 36.6; O2SAT 98
[2025-03-01 08:27] LABS: Hemoglobin 9.8 g/dl (12.0-16.0); Mean Corpuscular HGB Conc 33.8 g/dl (31.0-35.0); Mean Corpuscular Hemoglobin 30.1 pg (27.0-33.0); Mean Platelet Volume 8.7 fL (9.4-12.3); Platelet Count 293 X10*3/uL (160-400); Red Blood Count 3.26 X10*6/uL (4.20-5.50); Red Cell Distribution Width 12.2 % (11.0-16.0); White Blood Count 11.7 X10*3/uL (4.8-10.8)
--- NOTE | 2025-03-01 12:27 | P.DS_ITS ---
DS: Providers Provider Date of Service: 03/01/25 Date of admission: 02/26/25 21:36 Date of discharge: 03/01/25 Primary care physician: None Physician Attending physician on discharge: Koko Topete Discharging clinician: Nicole Hills DS: Diagnosis Discharge Diagnosis (1) Pyelonephritis: Status: Acute DS: Summary Hospital Course Hospital Course: From H&P on the day of admission This is a 19-year-old female with pertinent history of mild intermittent asthma not on home oxygen who presents to the emergency department for evaluation of flank pain. Patient states her symptoms started 3 days prior to presentation. She started having right-sided flank pain 3 days prior to presentation and it has subsequently progressed to left-sided flank pain 2 days prior to presentation. The pain is intermittent and not relieved with Tylenol. Also has been having chills, no documented fever. Patient had nausea and 2 episodes of nonbloody emesis on the day of presentation. This has never happened before. Patient had dysuria and increased urinary frequency 1 week ago and took [id number] azo for it and her symptoms resolved. Currently denies any urinary symptoms. No chest pain, palpitations, shortness of breath, changes in bowel habits. In the emergency department, patient was found to be septic with leukocytosis 25.2. Imaging with bilateral pyelonephritis Sepsis due to acute bilateral pyelonephritis: s/p 30cc/kg bolus. Lactic normal. Treated with IV ceftriaxone. patient reports dysuria symptoms a week or two back, she took over the counter pyridium and her symptoms resolved. Blood cultures have remained negative, urine culture was also negative. Given history of recent UTI symptoms, improvement with antibiotics and imaging consistent with cystitis/pyelonephritis, we will discharge home to complete 14 day course of oral antibiotics. Abdominal ultrasound unremarkable, pelvic ultrasound unremarkable. LFTs, lipase normal. Back pain. Could be component of above the also tender along bilateral paraspinal muscles in the lumbar spine. Recommend ibuprofen, hot packs etc. Hypomagnesemia: Resolved with replacement constipation ct with large colonic stool burden. bowel regimen Time Attestation Discharge Coordination Time (in mins): 36 Quality: Safe Use of Opioids Does Pt have an Active Cancer Diagnosis on the Problem List?: No Quality: Stroke Does the patient have a stroke diagnosis?: No Physical Exam Vital Signs: Vital Signs: Last Vital Signs Temp 97.8 F 03/01/25 07:34 Pulse 67 03/01/25 07:34 Resp 16 03/01/25 07:34 BP 109/52 L 03/01/25 07:34 Pulse Ox 98 03/01/25 07:34 O2 Del Method Room Air 03/01/25 07:34 BMI result Body Mass Index 21.9 Const: General: cooperative, comfortable, alert and awake Nutritional Appearance: average body habitus Orientation/consciousness: patient oriented x3 Resp: Effort & Inspection: normal respiratory effort, able to speak in complete sentences, no respiratory distress and no use of accessory muscles Cardio: Rate: regular rate GI: Inspection: No distended Palpation (GI): Soft to palpation Back/Spine/Pelvis: Other: b/l lumbar paraspinal muscle tenderness Neuro: General: patient oriented x3, moves all extremities and CN's II-XI intact bilaterally DS: Data Data Completed and Pending Labs on day of discharge: Laboratory Results - last 24 hr 03/01/25 08:02 WBC 11.7 H RBC 3.26 L Hgb 9.8 L Hct 29.0 L MCV 89.0 MCH 30.1 MCHC 33.8 RDW 12.2 Plt Count 293 MPV 8.7 L Absolute Nucleated RBC 0.000 Nucleated RBC % (auto) 0.0 Preliminary micro results at discharge 02/26/25 18:45 Blood Culture - Preliminary Blood - Venous No growth after 48 hours. 02/26/25 18:45 Blood Culture - Preliminary Blood - Venous No growth after 48 hours. Discharge Plan Discharge Anticipated Discharge Date/Time: 03/01/25 12:33 Patient Disposition: Home, Self-Care Discharge Diagnosis: acute pyelonephritis constipation back pain Referrals: Physician,None [Primary Care Provider, Medical] - 1 Week Discharge Medications: New polyethylene glycol 3350 17 gram Powder In Packet 17 g PO DAILY Qty: 30 0RF cefuroxime axetil 500 mg tablet 500 mg PO Q12H 11 Days Qty: 22 0RF docusate sodium 100 mg Capsule 100 mg PO BEDTIME 30 Days Qty: 30 0RF Continued ibuprofen [Advil] 200 mg Tablet 600 mg PO Q6H PRN (Reason: Pain) Discharge Orders: Discharge Order (Routine); Ordered 03/01/25 Ordered By: Nicole Hills Activity on Discharge: As tolerated Stand Alone Forms: Patient Portal Discharge page, Work/School Release Print Language: Cambodian Care Plan Goals: see below Health Concerns: pyelonephritis constipation back pain Plan of Treatment: Complete course of antibiotics as prescribed [id number]-[id number] azo (pyridium) can be used for pain with urination but does not treat infection for muscular back pain, recommend ibuprofen, hot packs, muscle rub or OTC salonpas lidocaine patches; do not avoid physical activity altogether, recommend walking recommend obtaining primary care provider for constipation, adequate hydration and fiber intake recommended. can use colace/mirlax (over the counter also ok) Assessment: see discharge summary
--- NOTE | 2025-03-01 12:59 | MHC.CM.PN ---
Patient medically cleared for dc home self care via private transport.
== END 2025-03-01 14:27 | disposition home or self-care (01) | DRG 720 ==
LOC: HO.ED 18:23 → HO.EDOVER 21:42 → HO.S3 02-27 07:51
PROVIDERS: Physician Assistant Medical; Admitting Provider Student in an Organized Health Care Education/Training Program; Emergency Provider Internal Medicine; Visit Provider Physician Assistant Medical
DX: A41.9 Sepsis, unspecified organism (principal); E83.42 Hypomagnesemia; N10 Acute pyelonephritis; K59.00 Constipation, unspecified; J45.20 Mild intermittent asthma, uncomplicated; Z20.822 Contact with and (suspected) exposure to COVID-19
CPT/HCPCS: 0241U; 36415; 74177; 76705; 76830; 76856; 80048; 80076; 81001; 83605; 83690; 83735; 84702; 85025; 85027; 87040; 87086; 93005; 99285; J0131; J0696; J1885; J2405; J3475; J7120; Q9967

== ENCOUNTER → 2025-02-26 18:10 | Outpatient (BNV) | payer BC, SELFPAY | PROVIDERS: Admitting Provider Student in an Organized Health Care Education/Training Program; Emergency Provider Internal Medicine; Visit Provider Internal Medicine | DX: I51.7 Cardiomegaly (principal); R00.0 Tachycardia, unspecified | CPT/HCPCS: 93010 ==

== ENCOUNTER → 2025-02-26 19:02 | Outpatient (BNV) | payer BC, SELFPAY | PROVIDERS: Admitting Provider Student in an Organized Health Care Education/Training Program; Emergency Provider Internal Medicine; Visit Provider Radiology Diagnostic Radiology | DX: N20.0 Calculus of kidney (principal) | CPT/HCPCS: 74177 ==

== ENCOUNTER 2025-02-26 21:36 | Outpatient (BNV) | payer BC, SELFPAY | END 2025-03-01 08:44 | PROVIDERS: Admitting Provider Student in an Organized Health Care Education/Training Program; Emergency Provider Internal Medicine; Visit Provider Radiology Diagnostic Radiology | DX: N83.12 Corpus luteum cyst of left ovary (principal); R10.9 Unspecified abdominal pain | CPT/HCPCS: 76705; 76830; 76856 ==

== ENCOUNTER → 2025-02-26 21:36 | Outpatient (BNV) | payer BC, SELFPAY | PROVIDERS: Admitting Provider Student in an Organized Health Care Education/Training Program; Emergency Provider Internal Medicine; Visit Provider Student in an Organized Health Care Education/Training Program | DX: N12 Tubulo-interstitial nephritis, not specified as acute or chronic (principal) | CPT/HCPCS: 99232; 99239 ==